=== PATIENT | female | born 1940 | race Caucasian/White ===

== ENCOUNTER 2017-08-21 13:23 | Emergency (ER) | payer MEDICARE ==
[~2017-08-21] VITALS: Ht 160 cm; Wt 77.1 kg
[~2017-08-21 13:23] MED LIST: ASPI-1265 PO; CA C1TAB69 PO; COENZYME Q10 PO; IBUP-1984 PO; LIRA0.6P2 SQ; METF500T7 PO; MISO100T47 PO; OMEG1CAP54 PO; PANT40TA39 PO; RAMI5CAP PO; RED600TA PO; TRIA1TAB5 PO; VITAMIN B 12 PO; [UNRECOGNIZED DRUG - OTHER] PO
[2017-08-21 13:43] VITALS: BP 142/56
== END 2017-08-21 15:46 | disposition home or self-care (01) ==
LOC: ER 13:24
DX: M25.512 Pain in left shoulder (principal); Z88.5 Allergy status to narcotic agent; Z79.82 Long term (current) use of aspirin; Z79.84 Long term (current) use of oral hypoglycemic drugs; Z79.899 Other long term (current) drug therapy
CPT/HCPCS: 73030; 73070; 99284; A4565

== ENCOUNTER 2018-05-19 13:55 | Emergency (ER) | payer MEDICARE ==
[~2018-05-19] VITALS: Ht 160 cm; Wt 77.4 kg
[~2018-05-19 13:55] MED LIST changes: -RAMI5CAP PO; +RAMI5CAP65 PO
[2018-05-19 13:59] VITALS: BP 129/75
[2018-05-19] MEDS ORDERED: triamcinolone acetonide 40mg/ml inj IM ONE (14:20)
== END 2018-05-19 14:55 | disposition home or self-care (01) ==
LOC: ER 13:56
DX: M54.5 Low back pain (principal); M19.90 Unspecified osteoarthritis, unspecified site; Z88.5 Allergy status to narcotic agent; Z79.82 Long term (current) use of aspirin; Z79.899 Other long term (current) drug therapy
CPT/HCPCS: 96372; 99283; J3301